=== PATIENT | male | born 1930 | race Caucasian/White ===

== ENCOUNTER 2017-10-11 21:05 | Inpatient (IN) | payer MEDICARE ==
[~2017-10-11] VITALS: Ht 170.2 cm; Wt 100.0 kg
[~2017-10-11 21:05] MED LIST: ALLO100T PO; ASPI81TA52 PO; ATOR40TA PO; CYCL-394 PO; FENO48TA15 PO; LEVO500T2 PO; LOP25T PO; MECL12.5 PO; OMEG1CAP54 PO; PARO20TA53 PO; VITA200T6 PO; [UNRECOGNIZED DRUG - OTHER]
[2017-10-11 21:28] LABS: BASOPHILS % (AUTO) 0.6 % (0-1); EOSINOPHILS # (AUTO) 0.5 X10'3 (0-0.9); EOSINOPHILS % (AUTO) 5.7 % (0-6); HEMATOCRIT 33.4 % (42.0-52.0); LYMPHOCYTES # (AUTO) 1.4 X10'3 (1.1-4.8); LYMPHOCYTES % (AUTO) 16.8 % (21-51); MEAN CORPUSCULAR HEMOGLOBIN 28.7 PG (27.0-31.0); MEAN CORPUSCULAR HGB CONC 32.8 % (33.0-36.5); MEAN CORPUSCULAR VOLUME 87.5 FL (78-98); MEAN PLATELET VOLUME 9.3 FL (7.4-10.4); MONOCYTES # (AUTO) 0.6 X10'3 (0-0.9); MONOCYTES % (AUTO) 7.3 % (2-12); NEUTROPHILS # (AUTO) 5.9 X10'3 (1.8-7.7); NEUTROPHILS % (AUTO) 69.6 % (42-75); PLATELET COUNT 268 X10'3 (140-440); RED BLOOD COUNT 3.82 X10'6 (4.70-6.10); RED CELL DISTRIBUTION WIDTH 15.6 % (11.5-14.5); WHITE BLOOD COUNT 8.5 X10'3 (4.5-11.0)
[2017-10-11 21:35] LABS: PARTIAL THROMBOPLASTIN TIME 26 SECONDS (22-32)
[2017-10-11 21:40] LABS: ALANINE AMINOTRANSFERASE 18 U/L (12-78); ALBUMIN 3.6 G/DL (3.4-5.0); ALBUMIN/GLOBULIN RATIO 1.2 (1.1-1.5); ALKALINE PHOSPHATASE 53 IU/L (46-116); ANION GAP 11 (8-16); ASPARTATE AMINO TRANSFERASE 16 U/L (10-37); BILIRUBIN,TOTAL 0.1 MG/DL (0.1-1.0); BLOOD UREA NITROGEN 33 MG/DL (7-18); BUN/CREATININE RATIO 26.6 (5.4-32.0); CALCIUM 9.7 MG/DL (8.5-10.1); CHLORIDE 108 MMOL/L (99-107); CREATININE 1.24 MG/DL (0.60-1.10); GLUCOSE 126 MG/DL (70-104); POTASSIUM 4.6 MMOL/L (3.5-5.1); SODIUM 143 MMOL/L (135-145); TOTAL CARBON DIOXIDE 23.7 MMOL/L (24-32); TOTAL PROTEIN 6.7 G/DL (6.4-8.2); eGFR 55 ML/MIN
[2017-10-11] MEDS ORDERED: PRIM50TA42 PO (22:29)
[2017-10-11] MEDS ORDERED: MIRA25TA PO (22:29)
[2017-10-11] MEDS ORDERED: FENO145T25 PO (22:29)
[2017-10-11] MEDS ORDERED: OMEP-50 PO (22:29)
[2017-10-11] MEDS ORDERED: FINA5TAB11 PO (22:29)
[2017-10-11] MEDS ORDERED: ALEN70TA13 PO (22:29)
[2017-10-11] MEDS ORDERED: PRAM0.129 PO (22:29)
[2017-10-11] MEDS ORDERED: GABA-532 PO (22:29)
[2017-10-11] MEDS ORDERED: ALLO300T8 PO (22:29)
[2017-10-11] MEDS ORDERED: TAMS0.4C32 PO (22:29)
[2017-10-11] MEDS ORDERED: CARB1TAB37 PO (22:29)
[2017-10-12] MEDS ORDERED: acetaminophen 325mg tablet PO PRN (00:20)
[2017-10-12] MEDS ORDERED: magnesium hydroxide 30ml (MOM) UD suspension PO PRN (00:20)
[2017-10-12] MEDS ORDERED: nitroGLYCERIN 0.4mg SUBLingual tab SL PRN ×2 (01:50→11:55)
[2017-10-12 02:30] VITALS: BP 157/88
[2017-10-12 07:00] VITALS: BP 156/87
[2017-10-12] MEDS ORDERED: heparin, porcine 5000 units/ml vial SQ SCH (08:00)
[2017-10-12] MEDS ORDERED: atorvastatin 20mg tablet PO SCH (08:00)
[2017-10-12] MEDS ORDERED: PARoxetine 20mg tablet PO SCH (08:00)
[2017-10-12] MEDS ORDERED: allopurinol 100mg tablet PO SCH (08:00)
[2017-10-12] MEDS ORDERED: OMEGA-3/DHA/EPA/FISH OIL 1 EACH CAPSULE.DR PO SCH (08:00)
[2017-10-12] MEDS ORDERED: metoprolol tartrate 50mg tablet PO SCH (08:00)
[2017-10-12] MEDS ORDERED: aspirin 81mg tablet.DR PO SCH (08:00)
[2017-10-12] MEDS ORDERED: fenofibrate 145mg tablet PO SCH (08:30)
[2017-10-12 10:05] VITALS: BP 153/94
[2017-10-12 11:00] VITALS: BP 141/90
[2017-10-12] MEDS ORDERED: regadenoson 0.4mg/5ml syringe IV ONE ×2 (11:55→14:28)
[2017-10-12] MEDS ORDERED: metoprolol tartrate 1mg/ml inj IV PRN (11:55)
[2017-10-12] MEDS ORDERED: CAFFEINE CITRATE 60 MG/3 ML injection vial IV PRN (11:55)
[2017-10-12] MEDS ORDERED: MELO-100 PO (12:37)
[2017-10-12] MEDS ORDERED: MECL-111 PO (12:38)
[2017-10-12] MEDS ORDERED: ASCO500C15 PO (12:39)
[2017-10-12] MEDS ORDERED: CALC-1051 PO (12:40)
[2017-10-12] MEDS ORDERED: CAFFEINE CITRATE 60 MG/3 ML injection vial IV ONE (14:28)
[2017-10-12 15:00] VITALS: BP 152/92
[2017-10-12] MEDS ORDERED: HYDROcodone/acetaminophen 10/325mg tab PO ONE (15:05)
[2017-10-12] MEDS ORDERED: NITR0.4T51 SL (15:06)
[2017-10-12] MEDS ORDERED: mirabegron 25mg ER tablet PO SCH (17:00)
[2017-10-12] MEDS ORDERED: tamsulosin 0.4mg capsule PO SCH (21:00)
[2017-10-13] MEDS ORDERED: finasteride 5mg tablet PO SCH (08:00)
[2017-10-13] MEDS ORDERED: carbidoba-levodopa 25-100mg tablet PO SCH (08:00)
[2017-10-13] MEDS ORDERED: pantoprazole 40mg Tablet.DR PO SCH (08:00)
[2017-10-13] MEDS ORDERED: fenofibrate 145mg tablet PO SCH (12:30)
== END 2017-10-12 16:41 | disposition home or self-care (01) | DRG 303 ==
LOC: ER 21:05 → ED HOLD 10-12 00:19 → PCU 3S 10-12 01:09
PROVIDERS: ADMIT Emergency Medicine; ATTEND Family Medicine
DX: I25.119 Atherosclerotic heart disease of native coronary artery with unspecified angina pectoris (principal); I25.2 Old myocardial infarction; G20 Parkinson's disease; E21.0 Primary hyperparathyroidism; E78.5 Hyperlipidemia, unspecified; M79.606 Pain in leg, unspecified; G25.81 Restless legs syndrome; I12.9 Hypertensive chronic kidney disease with stage 1 through stage 4 chronic kidney disease, or unspecified chronic kidney disease; M10.9 Gout, unspecified; N18.9 Chronic kidney disease, unspecified; F32.9 Major depressive disorder, single episode, unspecified; Z95.1 Presence of aortocoronary bypass graft; Z88.0 Allergy status to penicillin; Z88.2 Allergy status to sulfonamides; Z79.82 Long term (current) use of aspirin; Z79.899 Other long term (current) drug therapy
CPT/HCPCS: 36415; 71045; 80053; 84484; 85025; 85610; 85730; 87070; 93306; 99285; A9500; J1644